=== PATIENT | female | born 1935 | race Caucasian/White ===

== ENCOUNTER 2019-07-01 14:05 | Emergency (ER) | payer MEDICARE ==
[2019-07-01] MEDS ORDERED: traMADol 50 MG Tab PO ONE (14:06)
[2019-07-01] MEDS ORDERED: Sodium Chloride 0.9% 10 ML Syringe FLUSH PRN (14:30)
--- NOTE | 2019-07-01 14:40 | EDM.PDOC ---
ED HPI GENERAL MEDICAL PROBLEM - General Chief Complaint: Cardiovascular Problem Stated Complaint: CHEST PAIN Time Seen by Provider: 07/01/19 14:30 Source of Information: Reports: Patient, Old Records History Limitations: Reports: No Limitations - History of Present Illness INITIAL COMMENTS - FREE TEXT/NARRATIVE: Laura comes into [facility] ED with sxs of retrosternal lower chest pressure which radiates into the back from the R side, sxs beginning at 11 am, and persisting in varying intensity tjhru admission. There is no diaphoresis, nausea, vomiting , heartburn, palpitations, dizziness, or light headiness. She tried some Coca- Cola to burp, but results were unremarkable. She has had similar milder sxs in the past without investigation. She is on meds for HBP. Upper Anterior Abdomen Pain Score (Numeric/FACES): 8 - Related Data Allergies Allergy/AdvReac Type Severity Reaction Status Date / Time fluticasone propionate Allergy unknown Verified 11/09/13 10:10 [From Advair Diskus] Penicillins Allergy unknown Verified 11/09/13 10:10 salmeterol xinafoate Allergy unknown Verified 11/09/13 10:10 [From Advair Diskus] Home Meds: Home Meds Bisoprolol/Hydrochlorothiazide [Bisoprolol-Hctz 5-6.25 mg Tab] 1 tab PO BID 06/19 [History] Levothyroxine [Synthroid] 100 mcg PO DAILY 11/09/13 [History] Losartan [Cozaar] 100 mg PO DAILY 04/15/15 [History] Acetaminophen [Tylenol Arthritis Pain] 1,300 mg PO Q8H PRN 09/20/15 [History] Acetaminophen/Diphenhydramine [Tylenol Pm Ex-Strength Caplet] 2 tab PO BEDTIME PRN 09/20/15 [History] Indomethacin 50 mg PO TID PRN 09/20/15 [History] Past Medical History HEENT History: Reports: Impaired Vision Cardiovascular History: Reports: High Cholesterol, Hypertension Gastrointestinal History: Reports: Other (See Below) Other Gastrointestinal History: Loose stools- colonoscopy turned out okay. Pt states "been normal for me". 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 - Infectious Disease History Infectious Disease History: Reports: Chicken Pox, Measles, Mumps, Rubella, Scarlet Fever, Shingles - Past Surgical History Female Surgical History: Reports: Hysterectomy, Other (See Below) Musculoskeletal Surgical History: Reports: Arthroscopic Knee, Knee Replacement Social & Family History - Family History HEENT: Reports: Cataract Cardiac: Reports: High Cholesterol, Hypertension Respiratory: Reports: COPD OBGYN: Reports: Musculoskeletal: Reports: Arthritis Neurological: Reports: MS, TIA Oncologic: Reports: Bone, Breast, Colon, Leukemia, Liver, Prostate ED ROS GENERAL - Review of Systems Review Of Systems: See Below Constitutional: Reports: Malaise, Decreased Appetite HEENT: Reports: No Symptoms Respiratory: Reports: No Symptoms Cardiovascular: Reports: Chest Pain (lower retrosternal pressure), Blood Pressure Problem Endocrine: Reports: No Symptoms GI/Abdominal: Reports: Abdominal Pain (RUQ), Decreased Appetite : Reports: No Symptoms Musculoskeletal: Reports: No Symptoms Skin: Reports: No Symptoms Neurological: Reports: No Symptoms Psychiatric: Reports: No Symptoms Hematologic/Lymphatic: Reports: No Symptoms Immunologic: Reports: No Symptoms ED EXAM, GENERAL - Physical Exam Exam: See Below Exam Limited By: No Limitations General Appearance: Alert, WD/WN, Mild Distress, Obese Eye Exam: Bilateral Eye: EOMI, Normal Inspection, PERRL Ears: Normal External Exam Nose: Normal Inspection Throat/Mouth: Normal Inspection Head: Normocephalic Neck: Normal Inspection, Supple, Non-Tender, Full Range of Motion Respiratory/Chest: Lungs Clear, Normal Breath Sounds, Chest Non-Tender Cardiovascular: Regular Rate, Rhythm, No Murmur GI/Abdominal: Normal Bowel Sounds, Soft, No Organomegaly, No Distention, No Mass , Tender (RUQ) (Female) Exam: Deferred Rectal (Female) Exam: Deferred Back Exam: Normal Inspection Extremities: Normal Inspection Neurological: Alert, Oriented, CN II-XII Intact, Normal Cognition, No Motor/ Sensory Deficits Psychiatric: Normal Affect, Normal Mood Skin Exam: Warm, Dry, Intact, Normal Color, No Rash Lymphatic: No Adenopathy Course - Vital Signs Text/Narrative:: Following assessment, initial screening tests for cardiovascular disorder were negative. The d dimer 1.59 was mildly elevated. The chest x ray was baseline. A subsequent GB US revealed stones present, enlargement, and borderline enlargement of the cystic duct. Pain overlying GB was reproduced during procedure, suggestive of symptomatic disease. She was given a total of 100 mcg Fentanyl for pain relief. Last Recorded V/S: Last Vital Signs Temp Pulse Resp 16 07/01/19 14:10 BP 171/91 H 07/01/19 14:10 Pulse Ox - Orders/Labs/Meds Orders: Active Orders 24 hr Category Date Time Status EKG Documentation Completion [RC] ASDIRECTED Care 07/01/19 14:31 Active Abdomen Ltd [US] Stat Exams 07/01/19 14:49 Ordered Chest 1V Frontal [CR] Stat Exams 07/01/19 14:30 Ordered Sodium Chloride 0.9% [Saline Flush] Med 07/01/19 14:30 Active 10 ml FLUSH ASDIRECTED PRN Peripheral IV Insertion Adult [OM.PC] Routine Oth 07/01/19 14:30 Ordered EKG 12 Lead [EK] Routine Ther 07/01/19 14:30 Ordered Medication Orders Sodium Chloride (Saline Flush) 10 ml FLUSH ASDIRECTED PRN PRN Reason: Keep Vein Open Labs: Laboratory Tests 07/01/19 07/01/19 07/01/19 Range/Units 14:10 14:10 14:10 WBC 8.8 (4.5-12.0) X10-3/uL RBC 4.50 (3.23-5.20) x10(6)uL Hgb 13.1 (11.5-15.5) g/dL Hct 39.7 (30.0-51.3) % MCV 88.1 (80-96) fL MCH 29.0 (27.7-33.6) pg MCHC 32.9 (32.2-35.4) g/dL RDW 12.3 (11.5-15.5) % Plt Count 209 (125-369) X10(3)uL MPV 8.3 (7.4-10.4) fL Neut % (Auto) 69.5 (46-82) % Lymph % (Auto) 21.3 (13-37) % [place] % (Auto) 5.9 (4-12) % Eos % (Auto) 3 (1.0-5.0) % Baso % (Auto) 1 (0-2) % Neut # (Auto) 6.1 (1.6-8.3) # Lymph # (Auto) 1.9 (0.6-5.0) # [place] # (Auto) 0.5 (0.0-1.3) # Eos # (Auto) 0.2 (0.0-0.8) # Baso # (Auto) 0.0 (0.0-0.2) # D-Dimer, Quantitative (0.0-0.59) mg/LFEU Sodium 141 (135-145) mmol/L Potassium 3.9 (3.5-5.3) mmol/L Chloride 103 (100-110) mmol/L Carbon Dioxide 31 (21-32) mmol/L BUN 19 H (7-18) mg/dL Creatinine 1.1 H (0.55-1.02) mg/dL Est Cr Clr Drug Dosing TNP Estimated GFR (MDRD) 47 L (>60) BUN/Creatinine Ratio 17.3 (9-20) Glucose 115 (80-116) mg/dL Calcium 9.4 (8.6-10.2) mg/dL Total Bilirubin 0.8 (0.1-1.3) mg/dL AST 26 H (5-25) IU/L ALT 22 (12-36) U/L Alkaline Phosphatase 51 L (56-112) IU/L Troponin I 7.0 (4.0-60.3) pg/mL Total Protein 7.4 (6.0-8.0) g/dL Albumin 3.3 (3.2-4.6) g/dL Globulin 4.1 g/dL Albumin/Globulin Ratio 0.8 04/25/20 Range/Units 14:10 WBC (4.5-12.0) X10-3/uL RBC (3.23-5.20) x10(6)uL Hgb (11.5-15.5) g/dL Hct (30.0-51.3) % MCV (80-96) fL MCH (27.7-33.6) pg MCHC (32.2-35.4) g/dL RDW (11.5-15.5) % Plt Count (125-369) X10(3)uL MPV (7.4-10.4) fL Neut % (Auto) (46-82) % Lymph % (Auto) (13-37) % [place] % (Auto) (4-12) % Eos % (Auto) (1.0-5.0) % Baso % (Auto) (0-2) % Neut # (Auto) (1.6-8.3) # Lymph # (Auto) (0.6-5.0) # [place] # (Auto) (0.0-1.3) # Eos # (Auto) (0.0-0.8) # Baso # (Auto) (0.0-0.2) # D-Dimer, Quantitative 1.59 H (0.0-0.59) mg/LFEU Sodium (135-145) mmol/L Potassium (3.5-5.3) mmol/L Chloride (100-110) mmol/L Carbon Dioxide (21-32) mmol/L BUN (7-18) mg/dL Creatinine (0.55-1.02) mg/dL Est Cr Clr Drug Dosing Estimated GFR (MDRD) (>60) BUN/Creatinine Ratio (9-20) Glucose (80-116) mg/dL Calcium (8.6-10.2) mg/dL Total Bilirubin (0.1-1.3) mg/dL AST (5-25) IU/L ALT (12-36) U/L Alkaline Phosphatase (56-112) IU/L Troponin I (4.0-60.3) pg/mL Total Protein (6.0-8.0) g/dL Albumin (3.2-4.6) g/dL Globulin g/dL Albumin/Globulin Ratio Meds: Medications Generic Name Dose Route Start Last Admin Trade Name Freq PRN Reason Stop Dose Admin Sodium Chloride 10 ml 07/01/19 14:30 Saline Flush FLUSH ASDIRECTED PRN Keep Vein Open Discontinued Medications Generic Name Dose Route Start Last Admin Trade Name Freq PRN Reason Stop Dose Admin Fentanyl 100 mcg 07/01/19 14:46 Sublimaze IVPUSH 07/01/19 14:47 ONETIME ONE Departure - Departure Time of Disposition: 15:43 Disposition: Home, Self-Care 01 Condition: Fair Clinical Impression: Other cholelithiasis without obstruction Forms: ED Department Discharge Sepsis Event Note - Focused Exam Vital Signs: Vital Signs Resp BP 07/01/19 14:10 16 171/91 H Date Exam was Performed: 07/01/19 Time Exam was Performed: 15:40 - Problem List & Annotations (1) Other cholelithiasis without obstruction SNOMED Code(s): 735537186 Code(s): K80.80 - OTHER CHOLELITHIASIS WITHOUT OBSTRUCTION Status: Acute Current Visit: Yes Annotation/Comment:: Laura would benefit from follow up with PCP and consider Sugical consult. She will be dispensed Tramadol 50 mg for pain prn, advised low fat diet. - Problem List Review Problem List Initiated/Reviewed/Updated: Yes - My Orders Last 24 Hours: My Active Orders 07/01/19 14:30 Chest 1V Frontal [CR] Stat Sodium Chloride 0.9% [Saline Flush] 10 ml FLUSH ASDIRECTED PRN Peripheral IV Insertion Adult [OM.PC] Routine EKG 12 Lead [EK] Routine 07/01/19 14:31 EKG Documentation Completion [RC] ASDIRECTED 07/01/19 14:49 Abdomen Ltd [US] Stat - Assessment/Plan Last 24 Hours: My Active Orders 07/01/19 14:30 Chest 1V Frontal [CR] Stat Sodium Chloride 0.9% [Saline Flush] 10 ml FLUSH ASDIRECTED PRN Peripheral IV Insertion Adult [OM.PC] Routine EKG 12 Lead [EK] Routine 07/01/19 14:31 EKG Documentation Completion [RC] ASDIRECTED 07/01/19 14:49 Abdomen Ltd [US] Stat Plan: Follow up with PCP.
[2019-07-01] MEDS ORDERED: fentaNYL 100 MCG/2 ML SDV IVPUSH ONE (14:46)
[2019-07-01 17:10] VITALS: BP 159/67; PULSE 66
--- NOTE | 2019-07-04 13:43 | CR ---
INDICATION: Atypical chest pain. CHEST, 1 VIEW: AP portable upright view of the chest, 07/03/19, was compared with 02/15/19 and revealed no significant interval change - no definite acute process. Allowing for relatively poor inspiration, the heart did not appear enlarged. The aorta is slightly tortuous with calcification in the arch. A definite active infiltrate or effusion was not identified. IMPRESSION: No acute process. When clinically possible, PA and lateral views of the chest with full inspiration may be of further diagnostic benefit. MTDD
== END 2019-07-01 16:20 | disposition home or self-care (01) ==
LOC: FB.ED 14:05
DX: K80.80 Other cholelithiasis without obstruction (principal); I10 Essential (primary) hypertension; E78.00 Pure hypercholesterolemia, unspecified; M19.90 Unspecified osteoarthritis, unspecified site; Z88.8 Allergy status to other drugs, medicaments and biological substances; Z88.0 Allergy status to penicillin; Z79.899 Other long term (current) drug therapy
CPT/HCPCS: 36415; 71045; 76705; 80053; 84484; 85025; 85379; 93005; 96374; 96376; 99285; A9270; J3010; 99284

== ENCOUNTER 2019-10-19 07:17 | Day surgery (SDC) | payer MEDICARE, OTHER ==
[~2019-10-19 07:17] MED LIST: Lactated Ringers 1,000 ML IV SCH; Sodium Chloride 0.9% 10 ML Syringe FLUSH PRN
[2019-10-19] MEDS ORDERED: Dexamethasone 4 MG/ML 5 ML MDV IVPUSH ONE (07:18)
[2019-10-19] MEDS ORDERED: Succinylcholine 200 MG/10 ML MDV IV ONE (07:18)
[2019-10-19] MEDS ORDERED: Labetalol 100 MG/20 ML MDV IV ONE (07:18)
[2019-10-19] MEDS ORDERED: Ondansetron 4 MG/2 ML SDV IVPUSH ONE (07:18)
[2019-10-19] MEDS ORDERED: Rocuronium 50 MG/5 ML Vial IV ONE (07:18)
[2019-10-19] MEDS ORDERED: Glycopyrrolate 0.2 MG/ML 5 ML MDV IV ONE (07:18)
[2019-10-19] MEDS ORDERED: Lactated Ringers 1,000 ML IV ONE (07:18)
[2019-10-19] MEDS ORDERED: Propofol 200 MG/20 ML SDV IV ONE (07:18)
[2019-10-19] MEDS ORDERED: ePHEDrine 50 MG/ML SDV IV ONE (07:18)
[2019-10-19] MEDS ORDERED: fentaNYL 100 MCG/2 ML SDV IV ONE (07:18)
[2019-10-19] MEDS ORDERED: Neostigmine Methylsulfate 10 MG/10 ML MDV IVPUSH ONE (07:18)
[2019-10-19] MEDS ORDERED: cefOXitin 2 GM in Sodium Chloride 0.9% 100 ML IV ONE (08:00)
[2019-10-19] MEDS ORDERED: cefOXitin 2 GM Vial IVPUSH ONE (08:00)
[2019-10-19] MEDS ORDERED: Lidocaine 1% with EPINEPHrine 1:100,000 20 ML MDV INJECT ONE (09:10)
--- NOTE | 2019-10-19 09:10 | PREOP ---
ADMISSION DATE: 10/19/2019 CHIEF COMPLAINT: Symptomatic cholelithiasis. HISTORY OF PRESENT ILLNESS: This is a patient who has a history of some intermittent right upper quadrant abdominal pain, was seen originally in the emergency room in June, noted to have gallstones on ultrasound with normal duct system. Lab work was negative. She denied any previous attacks, jaundice, or acholic stools. Due to the COVID-19 crisis, her surgery was delayed and she presents now to have her gallbladder removed. She notes no issues. No further episodes of abdominal pain since her first visit. SOCIAL HISTORY: The patient does not smoke. Has never used tobacco products and occasionally one shot of liquor per week. PAST MEDICAL HISTORY: Significant for hypertension, hyperlipidemia, insomnia, osteoarthritis, gout, and GERD. PAST SURGICAL HISTORY: Significant for nasal surgery, right total knee, appendectomy, cystocele and rectocele repair, hysterectomy, and tonsillectomy. MEDICATIONS: Include: 1. Toprol 25 mg daily. 2. Diflucan 150 mg 1 time per day as needed. 3. Kathleen-3 fatty acids 1000 mg per mouth one time per day. 4. Desyrel 50 mg 2 tablets at bedtime. 5. Losartan 50 mg by mouth 1 time per day. 6. Levothyroxine 100 mcg by mouth once a day. FAMILY HISTORY: Notable for breast and stomach cancer. REVIEW OF SYSTEMS: HEENT: The patient denies any HEENT issues. CHEST: Does have some issues with chronic cough. Denies any chest pain. GI: No further GI issues. : No genitourinary issues. MUSCULOSKELETAL: Positive for back pain. SKIN: Negative. Denies any immunologic or environmental allergies. PHYSICAL EXAMINATION: GENERAL: This is a well-developed and well-nourished female, appearing in no acute distress. HEENT: Grossly within normal limits. LUNGS: Clear to auscultation. HEART: Had a regular rate and rhythm. ABDOMEN: Soft and nontender. Well-healed appendix incision in the right lower quadrant. ASSESSMENT: Cholelithiasis without cholecystitis or obstruction. PLAN: Laparoscopic cholecystectomy. Procedure and risks explained to the patient to include bleeding, injury to the underlying bile duct, blood vessels, and intestine, as well as the need to open. The patient expresses understanding and she asked us to proceed. ADDENDUM: She has an allergy to penicillin and Advair Diskus. /[id number] DEANA/YUSEFL
[2019-10-19] MEDS ORDERED: Bupivacaine 0.5% 30 ML SDV INJECT ONE (09:18)
--- NOTE | 2019-10-19 10:04 | PCM.SN.2 ---
- Free Text/Narrative Note: Add hypothyroidism to pmh
--- NOTE | 2019-10-19 10:10 | PCM.OPNOTE ---
- General Post-Op/Procedure Note Date of Surgery/Procedure: 10/19/19 Operative Procedure(s): lap cholecystectomy Findings: gallbladder. and partial contents. Pre Op Diagnosis: sx gallstones (sludge) no obstruction or cholecystitis Post-Op Diagnosis: Same Anesthesia Technique: General ET Tube, Local (10 ml ! % lido with epi/0.5% buvipicaine) Primary Surgeon: Jerardo Gibbons Anesthesia Provider: Shagufta Rangel Pathology: gallbladder EBL in mLs: 50 Complications: None Condition: Good Free Text/Narrative:: to recovery
[2019-10-19] MEDS ORDERED: Acetaminophen/HYDROcodone 325-5 MG Tab PO PRN (10:12)
[2019-10-19 11:44] VITALS: BP 154/62; PULSE 63
--- NOTE | 2019-10-20 08:31 | OR ---
DATE OF OPERATION: 10/19/2019 SURGEON: Jerardo Gibbons MD PREOPERATIVE DIAGNOSIS: Gallstones, possible sludge, and polyp. POSTOPERATIVE DIAGNOSIS: Gallstones, possible sludge, and polyp. INDICATIONS FOR PROCEDURE: This is an 83-year-old white female who is referred with a history of biliary colic and apparent gallstones on her ultrasound. She had a single episode of pain, was offered and accepted a cholecystectomy. DESCRIPTION OF PROCEDURE: After an excellent general endotracheal anesthetic was administered via ET tube, the patient was prepped and draped in usual sterile manner. A grand total of 10 mL of 1:1 mixture of 1% lidocaine with epinephrine and 0.5% bupivacaine was used to infiltrate our port sites in total. We started the procedure by infiltrating just below the umbilicus, making a vertical midline incision. Blunt dissection was carried out exposing the midline fascia, and 2 stay sutures placed on either side of the midline fascia which was then incised. The abdominal cavity was entered, and after digital palpation, 10.5 Matthew catheter with balloon tip was inserted and inflated. The patient's abdomen was insufflated to 15 mmHg using carbon dioxide. Under direct visualization, three 5 mm ports were placed; one in the midline epigastrium and two below the right costal margin at the approximate level of the midclavicular and anterior axillary line. This was done by infiltrating full thickness, making stab incisions with the skin and then inserting the trocars. The gallbladder was grasped, retracted in a cephalad fashion. The infundibulum was grasped and careful dissection was carried out, exposing the cystic duct and cystic artery. After achieving the critical view, 3 clips were placed proximally on the cystic duct and one distally. This was then transected. Two clips were placed proximally on the cystic artery and one distally and then this was transected as well. L-hook cautery dissection was carried out, and the gallbladder was dissected free from the gallbladder fossa. The clamp that had grasped the infundibulum did rupture the gallbladder, and there was some leakage of bile. The specimen, after dissecting free from the gallbladder fossa, was passed into a specimen bag and passed off the field. The gallbladder fossa was irrigated. Bleeding was controlled with a combination of electrocautery, as well as Surgicel with pressure. There were several oozing points noted that took longer than usual to get under control, but we did demonstrate good hemostasis. After packing the area with some Surgicel and waiting 5 minutes, the area was reinspected, and no active bleeding was noted. At this point, we irrigated the gutter along the right lobe of the liver, flatten the patient out, and after checking again to ensure there was no bleeding, the trocars were removed under direct visualization, and the pneumoperitoneum was released. The periumbilical fascia was closed with a [id number] 0 Vicryl. Damir were used to close the skin. Needle, sponge, and instrument counts were reported as correct. We estimated approximately 50 mL of blood loss. /[id number] /MODL
== END 2019-10-19 12:21 | disposition home or self-care (01) ==
LOC: FB.SDS 07:17
PROVIDERS: ATTEND Surgery
DX: K80.10 Calculus of gallbladder with chronic cholecystitis without obstruction (principal); I10 Essential (primary) hypertension; E78.5 Hyperlipidemia, unspecified; G47.00 Insomnia, unspecified; M19.90 Unspecified osteoarthritis, unspecified site; M10.9 Gout, unspecified; K21.9 Gastro-esophageal reflux disease without esophagitis; E03.9 Hypothyroidism, unspecified; Z11.59 Encounter for screening for other viral diseases; Z79.899 Other long term (current) drug therapy; Z79.890 Hormone replacement therapy
CPT/HCPCS: 00790; 47562; 88304; 94150; A9270; J0330; J0694; J1100; J2405; J2704; J2710; J3010; J3490; J7120; U0002

== ENCOUNTER 2019-12-19 09:55 | Day surgery (SDC) | payer MEDICARE ==
[2019-12-19] MEDS ORDERED: Midazolam 1 MG/ML 2 ML SDV IV ONE (09:56)
[2019-12-19] MEDS ORDERED: fentaNYL 100 MCG/2 ML SDV IV ONE (09:56)
[2019-12-19] MEDS ORDERED: Lactated Ringers 1,000 ML IV PRN (10:00)
[2019-12-19] MEDS: Sodium Chloride 0.9% 10 ML Syringe FLUSH PRN (10:50)
[2019-12-19] MEDS: acetaZOLAMIDE 500 MG Cap.ER PO ONE (12:19)
[2019-12-19 12:53] VITALS: BP 152/81; PULSE 74
--- NOTE | 2019-12-20 12:31 | OR ---
DATE OF OPERATION: 12/19/2019 SURGEON: Gail Sanchez MD PREOPERATIVE DIAGNOSES: 1. Visually significant cataract, right eye. 2. Floppy iris syndrome, right eye. POSTOPERATIVE DIAGNOSES: 1. Visually significant cataract, right eye. 2. Floppy iris syndrome, right eye. PROCEDURES PERFORMED: Complex phacoemulsification with intraocular lens placement, right eye, CPT 72238. ASSISTANTS: None. ANESTHESIA: Local with sedation. COMPLICATIONS: None. BLOOD LOSS: None. IMPLANTS: An Jorgito ACU0T0, 20.5 diopter lens implanted. CDE: 3.29. DESCRIPTION OF PROCEDURE: After risks and benefits were reviewed with the patient, consent was obtained in the preoperative area, and the operative eye was marked with a surgical pen. In the preoperative area, a pledget was used to dilate the pupil consisting of a mixture of phenylephrine 10%, cyclopentolate 2%, moxifloxacin 0.5%, and bupivacaine 0.75%. The patient was taken to the operating room, where a time-out was performed, and the patient was placed under monitored anesthesia care. Topical tetracaine was used for anesthesia. The operative eye was prepped and draped for ophthalmic surgery, and the microscope was brought into position and focused. A paracentesis incision was made, followed by injection of preservative-free 1% lidocaine into the anterior chamber, followed by injection of Viscoat into the anterior chamber. Due to floppy iris syndrome and poor pupillary dilation, Malyugin ring was used to retract the pupil to 6.25 mm. A microkeratome blade was used to make a corneal limbal incision temporally. A cystotome was used to make the beginning of the capsulorrhexis, which was carried around 360 degrees in a curvilinear fashion using Utrata forceps. A Whitaker cannula with BSS was used to hydrodissect and hydrodelineate the nucleus. The nucleus was removed in a divide and conquer manner using phacoemulsification. Irrigation and aspiration were used to remove the remaining cortical material. Provisc was used to inflate the capsular bag, and a pre-loaded Jorgito ACU0T0, 20.5 diopter lens, serial number [id number] was injected into the capsular bag. A Sinskey hook was used to position and center the lens. The Malyugin ring was then removed from the anterior chamber and discarded. Next, irrigation and aspiration was used to remove any remaining viscoelastic and cortical material from the anterior chamber. BSS on a cannula was used to inflate the anterior chamber and hydrate the wound. The wound was checked and found to be watertight. 1 mg of Moxifloxacin was injected into the anterior chamber. Drapes were removed and the eye was cleaned. A drop of brimonidine 0.15% and a drop of TobraDex was placed. The eye was shielded, and the patient was taken to the recovery room in stable condition. CC: Efe Parker OD CC: Christina Montes CNP /[id number] JACI/CRISTINO
== END 2019-12-19 12:40 | disposition home or self-care (01) ==
LOC: FB.SDS 09:55
PROVIDERS: ATTEND Ophthalmology
DX: H25.813 Combined forms of age-related cataract, bilateral (principal); H18.599 Other hereditary corneal dystrophies, unspecified eye; H35.3131 Nonexudative age-related macular degeneration, bilateral, early dry stage; H52.223 Regular astigmatism, bilateral; H21.81 Floppy iris syndrome; I10 Essential (primary) hypertension; R05 Cough; E03.9 Hypothyroidism, unspecified; K21.9 Gastro-esophageal reflux disease without esophagitis; E66.9 Obesity, unspecified; B37.3 Candidiasis of vulva and vagina; H61.20 Impacted cerumen, unspecified ear; G47.00 Insomnia, unspecified; R00.0 Tachycardia, unspecified; Z79.899 Other long term (current) drug therapy; Z88.0 Allergy status to penicillin; Z88.8 Allergy status to other drugs, medicaments and biological substances
CPT/HCPCS: 00142-QZ; A9270-GY; J2250; J3010; V2632

== ENCOUNTER 2020-01-02 09:56 | Day surgery (SDC) | payer MEDICARE ==
[2020-01-02] MEDS ORDERED: Midazolam 1 MG/ML 2 ML SDV IV ONE (09:57)
[2020-01-02] MEDS ORDERED: fentaNYL 100 MCG/2 ML SDV IV ONE (09:57)
[2020-01-02] MEDS ORDERED: Lactated Ringers 1,000 ML IV PRN (10:00)
[2020-01-02] MEDS ORDERED: Sodium Chloride 0.9% 10 ML Syringe FLUSH PRN (10:00)
[2020-01-02 11:58] VITALS: BP 129/80; PULSE 79
[2020-01-02] MEDS ORDERED: acetaZOLAMIDE 500 MG Cap.ER PO ONE (12:00)
--- NOTE | 2020-01-03 08:05 | OR ---
DATE OF OPERATION: 01/02/2020 SURGEON: Gail Sanchez MD PREOPERATIVE DIAGNOSES: 1. Visually significant cataract, left eye. 2. Floppy iris syndrome, left eye. POSTOPERATIVE DIAGNOSES: 1. Visually significant cataract, left eye. 2. Floppy iris syndrome, left eye. PROCEDURES PERFORMED: Complex phacoemulsification with intraocular lens placement, left eye, CPT 87419. ASSISTANTS: None. ANESTHESIA: Local with sedation. COMPLICATIONS: None. BLOOD LOSS: None. IMPLANTS: An Jorgito ACU0T0, 20.5 diopter lens, serial number [id number] implanted. CDE: 3. DESCRIPTION OF PROCEDURE: After risks and benefits were reviewed with the patient, consent was obtained in the preoperative area, and the operative eye was marked with a surgical pen. In the preoperative area, a pledget was used to dilate the pupil consisting of a mixture of phenylephrine 10%, cyclopentolate 2%, moxifloxacin 0.5%, and bupivacaine 0.75%. The patient was taken to the operating room, where a time-out was performed, and the patient was placed under monitored anesthesia care. Topical tetracaine was used for anesthesia. The operative eye was prepped and draped for ophthalmic surgery, and the microscope was brought into position and focused. A paracentesis incision was made, followed by injection of preservative-free 1% lidocaine into the anterior chamber, followed by injection of Viscoat into the anterior chamber. A microkeratome blade was used to make a corneal limbal incision temporally. Due to floppy iris syndrome and poor pupillary dilation, a Malyugin ring was used to retract the pupil to 6.25 mm. A cystotome was used to make the beginning of the capsulorrhexis, which was carried around 360 degrees in a curvilinear fashion using Utrata forceps. A Whitaker cannula with BSS was used to hydrodissect and hydrodelineate the nucleus. The nucleus was removed in a divide and conquer manner using phacoemulsification. Irrigation and aspiration were used to remove the remaining cortical material. Provisc was used to inflate the capsular bag, and a pre-loaded Jorgito ACU0T0, 20.5 diopter lens, serial number [id number] was injected into the capsular bag. A Sinskey hook was used to position and center the lens. The Malyugin ring was then removed from the anterior chamber and discarded. Next, irrigation and aspiration was used to remove any remaining viscoelastic and cortical material from the anterior chamber. BSS on a cannula was used to inflate the anterior chamber and hydrate the wound. The wound was checked and found to be watertight. 1 mg of Moxifloxacin was injected into the anterior chamber. Drapes were removed and the eye was cleaned. A drop of brimonidine 0.15% and a drop of TobraDex was placed. The eye was shielded, and the patient was taken to the recovery room in stable condition. /[id number] JACI/CRISTINO
== END 2020-01-02 12:18 | disposition home or self-care (01) ==
LOC: FB.SDS 09:56
PROVIDERS: ATTEND Ophthalmology
DX: H25.813 Combined forms of age-related cataract, bilateral (principal); H21.81 Floppy iris syndrome; H18.509 Unspecified hereditary corneal dystrophies, unspecified eye; H35.3131 Nonexudative age-related macular degeneration, bilateral, early dry stage; H52.223 Regular astigmatism, bilateral; I10 Essential (primary) hypertension; R05 Cough; E03.9 Hypothyroidism, unspecified; K21.9 Gastro-esophageal reflux disease without esophagitis; E66.9 Obesity, unspecified; B37.3 Candidiasis of vulva and vagina; H61.21 Impacted cerumen, right ear; G47.00 Insomnia, unspecified; E78.1 Pure hyperglyceridemia; Z79.899 Other long term (current) drug therapy; Z88.8 Allergy status to other drugs, medicaments and biological substances; Z88.0 Allergy status to penicillin; Z68.31 Body mass index [BMI] 31.0-31.9, adult
CPT/HCPCS: 00142; 66982; A9270; J2250; J3010; V2632

== ENCOUNTER 2020-01-30 12:32 | Emergency (ER) | payer MEDICARE ==
--- NOTE | 2020-01-30 14:20 | CR ---
INDICATION: Dyspnea. CHEST ONE VIEW: Portable AP upright view of the chest 01/30/20 was compared with 07/01/19 and revealed the heart to remain normal in size and shape. The aorta is calcified in the arch area and prominent in the arch area. A consolidating pneumonia or effusion was not identified. However, at the right lung base there are slightly heavy markings in one area raising question of a focal area of patchy bronchopneumonia. No other findings to suggest an acute process were identified. IMPRESSION: 1. Question minimal patchy pneumonia at the right lung base. 2. ASD aorta. MTDD
--- NOTE | 2020-01-30 15:13 | EDM.PDOC ---
ED HPI GENERAL MEDICAL PROBLEM - General Chief Complaint: General Stated Complaint: COVID SYMPTOMS Time Seen by Provider: 01/30/20 12:35 Source of Information: Reports: Patient, Family History Limitations: Reports: No Limitations - History of Present Illness INITIAL COMMENTS - FREE TEXT/NARRATIVE: Patient presented to the ED because of sore throat, and low grade fever. There is no associated N/V/D or cough /cold. - Related Data Allergies Allergy/AdvReac Type Severity Reaction Status Date / Time fluticasone propionate Allergy Tachycardia Verified 01/30/20 13:37 [From Advair Diskus] Penicillins Allergy Swelling Verified 01/30/20 13:37 salmeterol xinafoate Allergy Tachycardia Verified 01/30/20 13:37 [From Advair Diskus] Home Meds: Home Meds Levothyroxine [Synthroid] 100 mcg PO DAILY 11/09/13 [History] Losartan [Cozaar] 50 mg PO DAILY 10/18/19 [History] Metoprolol Succinate [Toprol XL] 37.5 mg PO BEDTIME 10/18/19 [History] [place]-3/DHA/Epa/Fish Oil [[place] 3 500 Softgel] 1,000 mg PO DAILY 10/18/19 [History] traZODone HCl [Trazodone HCl] 100 mg PO BEDTIME 10/18/19 [History] Azithromycin [Zithromax] 250 mg PO DAILY #6 tablet 01/30/20 [Rx] Past Medical History HEENT History: Reports: Cataract, Impaired Vision Other HEENT History: ASTIGMATISM, HYPEROPIA Cardiovascular History: Reports: High Cholesterol, Hypertension Other Respiratory History: CHRONIC COUGH Gastrointestinal History: Reports: GERD, Other (See Below) Other Gastrointestinal History: Loose stools- colonoscopy turned out okay. Pt states "been normal for me". 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; HYPERGLYCERIDEMIA - Infectious Disease History Infectious Disease History: Reports: Chicken Pox, Measles, Mumps, Rubella, Scarlet Fever, Shingles - Past Surgical History HEENT Surgical History: Reports: Adenoidectomy, Tonsillectomy Other HEENT Surgeries/Procedures: SINUS PROCEDURE GI Surgical History: Reports: Appendectomy, Colonoscopy Female Surgical History: Reports: Hysterectomy, Other (See Below) Other Female Surgeries/Procedures: Removal of ovaries, CYSTO RECTOCELE REPAIR Musculoskeletal Surgical History: Reports: Arthroscopic Knee, Knee Replacement Social & Family History - Family History HEENT: Reports: Cataract Cardiac: Reports: High Cholesterol, Hypertension Respiratory: Reports: COPD OBGYN: Reports: Musculoskeletal: Reports: Arthritis Neurological: Reports: MS, TIA Oncologic: Reports: Bone, Breast, Colon, Leukemia, Liver, Prostate - Caffeine Use Caffeine Use: Reports: Coffee, Soda ED ROS GENERAL - Review of Systems Review Of Systems: See Below Constitutional: Reports: No Symptoms HEENT: Reports: No Symptoms Respiratory: Reports: No Symptoms Cardiovascular: Reports: No Symptoms Endocrine: Reports: No Symptoms GI/Abdominal: Reports: No Symptoms : Reports: No Symptoms Musculoskeletal: Reports: No Symptoms Skin: Reports: No Symptoms Neurological: Reports: No Symptoms Psychiatric: Reports: No Symptoms ED EXAM, GENERAL - Physical Exam Exam: See Below Exam Limited By: No Limitations General Appearance: Alert, No Apparent Distress Eye Exam: Bilateral Eye: PERRL Ears: Normal External Exam Nose: Normal Inspection, Normal Mucosa, No Blood Throat/Mouth: Normal Inspection, Normal Lips Head: Atraumatic, Other Neck: Normal Inspection, Supple, Non-Tender, Full Range of Motion Respiratory/Chest: No Respiratory Distress, Lungs Clear, Normal Breath Sounds Cardiovascular: Normal Peripheral Pulses, Regular Rate, Rhythm, No Edema, No Gallop, No JVD, No Murmur GI/Abdominal: Normal Bowel Sounds, Soft, Non-Tender, No Organomegaly Back Exam: Normal Inspection, Full Range of Motion Extremities: Normal Inspection, Normal Range of Motion, Non-Tender Neurological: Alert, Oriented, CN II-XII Intact, Normal Cognition Course - Vital Signs Text/Narrative:: Covid-pos Last Recorded V/S: Last Vital Signs Temp 35.8 C L 01/30/20 12:32 Pulse 81 01/30/20 12:32 Resp 18 01/30/20 12:32 BP 132/74 01/30/20 12:32 Pulse Ox 98 01/30/20 12:32 - Orders/Labs/Meds Labs: Laboratory Tests 01/30/20 Range/Units 13:35 SARS-CoV-2 RNA ([facility]) Positive H (NEGATIVE) Departure - Departure Time of Disposition: 15:30 Disposition: Home, Self-Care 01 Condition: Good Clinical Impression: COVID-19 - Discharge Information Instructions: COVID-19 Frequently Asked Questions Referrals: Christina Montes NP [Primary Care Provider] - Additional Instructions: Please read discharge instructions on COVID-19 Increase oral fluids at least 2 liters a day Decadron 6 mg daily for 10 days Z-marsha as directed Take 1 tablet daily of Vitamin C-500 mg, Vitamin D-2000 Units, Zinc-50 mg Follow up as needed Sepsis Event Note (ED) - Focused Exam Vital Signs: Vital Signs Temp Pulse Resp BP Pulse Ox 01/30/20 12:32 35.8 C L 81 18 132/74 98
[2020-01-30 19:01] VITALS: BP 136/75; PULSE 94
== END 2020-01-30 17:05 | disposition home or self-care (01) ==
LOC: FB.ED 12:32
DX: U07.1 COVID-19 (principal); I10 Essential (primary) hypertension; E78.00 Pure hypercholesterolemia, unspecified; E03.9 Hypothyroidism, unspecified; Z88.8 Allergy status to other drugs, medicaments and biological substances; Z88.0 Allergy status to penicillin; Z79.899 Other long term (current) drug therapy
CPT/HCPCS: 71045; 99284-25; U0002